=== PATIENT | male | born 1980 | race Caucasian/White ===

== ENCOUNTER → 2020-06-21 | Outpatient (CLI) | payer OTHER ==
--- NOTE | 2020-06-21 09:07 | REP ---
INDICATION: CHEST PAIN COMPARISON: None TECHNIQUE: Axial noncontrast images from the thoracic inlet to the upper abdomen with coronal and sagittal reformations. This CT examination was performed using the following dose reduction techniques: Automated exposure control, adjustment of mA and/or kv according to the patient's size, and use of iterative reconstruction technique. FINDINGS: Bilateral lung benitez are well aerated, symmetric and essentially clear. No consolidation, significant nodule or mass. No effusion. No pneumothorax. Tracheobronchial tree is patent. No obvious adenopathy. Thoracic aorta, pulmonary vasculature, and heart/pericardium appear normal. Surrounding musculoskeletal structures are intact and without acute osseous abnormality. IMPRESSION: Normal noncontrast chest CT. No acute mediastinal or pleuroparenchymal process. <Electronically signed by Adrian Espinal > 06/21/20 0939
== END ==
LOC: M RAD 08:22
PROVIDERS: ATTEND Physician Assistant
DX: R07.82 Intercostal pain (principal)